=== PATIENT | male | born 1975 | race Caucasian/White ===

== ENCOUNTER → 2020-03-22 | Outpatient (CLI) | payer BC, OTHER ==
[~2020-03-22] MED LIST: IBUP600T OR; NEXI20CA OR; NUCYNTA PO; PERC7.5T8 OR
== END ==
LOC: M LABSMTC 13:44
PROVIDERS: ATTEND Family Medicine
DX: Z01.818 Encounter for other preprocedural examination (principal); Z11.59 Encounter for screening for other viral diseases

== ENCOUNTER → 2022-09-10 | Outpatient (REF) | payer BC | LOC: M SFHCDERM 14:26 | PROVIDERS: ATTEND Physician Assistant | DX: D49.2 Neoplasm of unspecified behavior of bone, soft tissue, and skin (principal); L28.1 Prurigo nodularis ==

== ENCOUNTER → 2022-09-23 | Outpatient (REF) | payer BC | LOC: M SFHCDERM 16:32 | PROVIDERS: ATTEND Physician Assistant | DX: B99.9 Unspecified infectious disease (principal) ==

== ENCOUNTER 2023-07-01 08:21 | Day surgery (SDC) | payer BC ==
[~2023-07-01] VITALS: Ht 170.2 cm; Wt 95.3 kg
[~2023-07-01 08:21] MED LIST changes: +CIDA500T2 PO; +EQL50TAB2 PO; +ESOM40CA35 PO; +METH36TA2 PO; +NS 1,000 ML IV ONE; +RA M1000 PO; +SIMV20TA22 PO; +VITA100093 PO
[2023-07-01] MEDS ORDERED: propofoL 200 MG/20 ML VIAL As Ordered ONE (09:50)
[2023-07-01 10:22] VITALS: BP 109/67; O2SAT 95
== END 2023-07-01 10:27 | disposition home or self-care (01) ==
LOC: M OPP 08:21
PROVIDERS: ATTEND Internal Medicine Gastroenterology
DX: Z12.11 Encounter for screening for malignant neoplasm of colon (principal); D12.3 Benign neoplasm of transverse colon; Z87.891 Personal history of nicotine dependence; Z79.02 Long term (current) use of antithrombotics/antiplatelets; Z79.83 Long term (current) use of bisphosphonates; Z79.899 Other long term (current) drug therapy